=== PATIENT | female | born 1975 ===

== ENCOUNTER 2018-10-31 08:41 | Emergency (ER) | payer OTHER ==
[~2018-10-31] VITALS: Ht 165.1 cm; Wt 52.2 kg
== END 2018-10-31 09:51 | disposition home or self-care (01) ==
LOC: ER 08:41
DX: S81.822A Laceration with foreign body, left lower leg, initial encounter (principal); W45.8XXA Other foreign body or object entering through skin, initial encounter; Y93.89 Activity, other specified; Y92.098 Other place in other non-institutional residence as the place of occurrence of the external cause; Y99.8 Other external cause status

== ENCOUNTER → 2018-11-04 | Emergency (ER) | payer OTHER | END | disposition left against medical advice (07) | LOC: ER 18:45 | DX: Z53.20 Procedure and treatment not carried out because of patient's decision for unspecified reasons (principal) ==

== ENCOUNTER 2018-11-10 13:11 | Emergency (ER) | payer OTHER ==
[~2018-11-10] VITALS: Ht 165.1 cm; Wt 53.5 kg
== END 2018-11-10 14:23 | disposition home or self-care (01) ==
LOC: ER 13:11
DX: Z48.02 Encounter for removal of sutures (principal)